=== PATIENT | male | born 1975 | race Caucasian/White ===

== ENCOUNTER 2017-06-13 13:40 | Emergency (ER) | payer OTHER, MEDICAID ==
--- NOTE | 2017-06-13 14:16 | ER Document Report ---
ED Medical Screen (RME) - General Chief Complaint: Psych Problem Stated Complaint: PSYCH EVAL Time Seen by Provider: 06/13/17 14:10 Mode of Arrival: Ambulatory Information source: Patient TRAVEL OUTSIDE OF THE [place] IN LAST 30 DAYS: No - HPI Onset: This morning Onset/Duration: Sudden Quality of pain: No pain Associated Symptoms: Other - AGITATED Exacerbated by: Denies Relieved by: Denies Similar symptoms previously: Yes Recently seen / treated by doctor: No - Related Data Allergies/Adverse Reactions: Penicillins Allergy (Verified 06/13/17 13:46) Past Medical History - General Information source: Patient - Past Medical History Cardiac Medical History: Reports: Hx Hypertension Pulmonary Medical History: Reports: Hx Asthma Renal/ Medical History: Denies: Hx Peritoneal Dialysis GI Medical History: Reports: Hx Gastroesophageal Reflux Disease Psychiatric Medical History: Reports: Hx Depression, Hx Schizophrenia - schizoaffective - Immunizations Hx Diphtheria, Pertussis, Tetanus Vaccination: No Review of Systems - Review of Systems Constitutional: No symptoms reported EENT: No symptoms reported Cardiovascular: No symptoms reported Respiratory: No symptoms reported Gastrointestinal: No symptoms reported Musculoskeletal: No symptoms reported Skin: No symptoms reported Neurological/Psychological: See HPI Physical Exam - Vital signs Vitals: Temp Pulse Resp BP Pulse Ox 98.3 F 93 16 143/82 H 98 06/13/17 13:46 06/13/17 13:46 06/13/17 13:46 06/13/17 13:46 06/13/17 13:46 Interpretation: Hypertensive. No: Tachycardic, Tachypneic, Febrile - General General appearance: Alert, Other - AGITATED, CONTINUALLY ROCKING TO & FRO In distress: None Course - Vital Signs Vital signs: Temp Pulse Resp BP Pulse Ox 98.3 F 93 16 143/82 H 98 06/13/17 13:46 06/13/17 13:46 06/13/17 13:46 06/13/17 13:46 06/13/17 13:46
[2017-06-13 15:23] LABS: ABSOLUTE BASOPHILS # (AUTO) 0.1 10^3/uL (0.0-0.2); ABSOLUTE EOSINOPHILS # (AUTO) 1.3 10^3/uL (0.0-0.6); ABSOLUTE LYMPHOCYTES (AUTO) 2.5 10^3/uL (0.5-4.7); ABSOLUTE NEUT (AUTO) 7.9 10^3/uL (1.7-8.2); BASOPHILS % (AUTO) 0.6 % (0-2); EOSINOPHILS % (AUTO) 10.4 % (0-6); HEMATOCRIT 45.8 % (37.9-51.0); HEMOGLOBIN 15.5 g/dL (13.5-17.0); HGB HCT DIFFERENCE 0.7; LYMPHOCYTES % (AUTO) 19.6 % (13-45); MEAN CORPUSCULAR HEMOGLOBIN 30.9 pg (27.0-33.4); MEAN CORPUSCULAR VOLUME 91 fl (80-97); MONOCYTES % (AUTO) 7.5 % (3-13); RED BLOOD COUNT 5.04 10^6/uL (4.35-5.55); RED CELL DISTRIBUTION WIDTH 12.9 % (11.5-14.0); SEGMENTED NEUTROPHILS % (AUTO) 61.9 % (42-78); WHITE BLOOD COUNT 12.8 10^3/uL (4.0-10.5)
[2017-06-13 15:47] LABS: ALANINE AMINOTRANSFERASE 51 U/L (21-72); ALKALINE PHOSPHATASE 94 U/L (38-126); ANION GAP 13 (5-19); ASPARTATE AMINO TRANSFERASE 26 U/L (17-59); BILIRUBIN,DIRECT 0.4 mg/dL (0.0-0.4); BILIRUBIN,TOTAL 0.5 mg/dL (0.2-1.3); BLOOD UREA NITROGEN 16 mg/dL (7-20); CALCIUM 9.9 mg/dL (8.4-10.2); CARBON DIOXIDE 27 mmol/L (22-30); CHLORIDE 100 mmol/L (98-107); GLUCOSE 73 mg/dL (75-110); POTASSIUM 4.2 mmol/L (3.6-5.0); SODIUM 139.6 mmol/L (137-145)
[2017-06-13 15:48] LABS: ALCOHOL < 10 mg/dL (NONE DETECTED)
[2017-06-13 16:30] LABS: APPEARANCE,URINE CLEAR; BILIRUBIN,URINE NEGATIVE (NEGATIVE); GLUCOSE, URINE NEGATIVE (NEGATIVE); KETONES,URINE NEGATIVE (NEGATIVE); LEUKOCYTE ESTERASE,URINE NEGATIVE (NEGATIVE); NITRITE,URINE NEGATIVE (NEGATIVE); PROTEIN,URINE NEGATIVE (NEGATIVE); URINE SPECIFIC GRAVITY 1.016; UROBILINOGEN,URINE NEGATIVE mg/dL (<2.0)
[2017-06-13 16:44] LABS: URINE BARBITURATES SCREEN NEGATIVE; URINE METHADONE SCREEN NEGATIVE; URINE OPIATES LOW NEGATIVE; URINE PHENCYCLIDINE SCREEN NEGATIVE
--- NOTE | 2017-06-13 18:02 | ER Document Report ---
ED Psych Disorder / Suicide - General Chief Complaint: Psych Problem Stated Complaint: PSYCH EVAL Time Seen by Provider: 06/13/17 14:10 Mode of Arrival: Ambulatory Information source: Patient Notes: 41-year-old male with a history of schizoaffective disorder with bipolar type, unspecified anxiety who is brought into the emergency room because of losing control. He states he has been feeling sad, crying, hearing voices. He denies any attempt to hurt himself. TRAVEL OUTSIDE OF THE [place] IN LAST 30 DAYS: No - HPI Patient complains to provider of: No: Aggression, Agitated, Bizarre behavior, Hallucinating, Homicidal ideation, Homicidal plan, Homicidal attempt, Overdose, Suicidal ideation, Suicidal plan, Suicidal attempt, Self injury, Other Onset: Just prior to arrival Onset was: Sudden Quality of pain: No pain Severity: None Pain Level: Denies Suicide Risk Factors: Schizophrenia Overdose of: No: Acetominophen, Alcohol, Anticholinergic, Anti-depressants, Benzodiazepine, Salicylate, Tricyclic Antidepressant, Other Injury to: No: Generalized, Abdomen, Ankle, Back, Breast, Buttocks, Chest, Elbow , Epigastric, Flank, Face, Finger, Foot, Hand, Head, Hip, Knee, Leg, Lower extremity, Mouth, Neck, Pelvic, Penis, Perineum, Rectum, Shoulder, Testicle, Thigh, Throat, Trunk, Upper extremity, Vagina, Wrist Normal mood: No Associated symptoms: Agitated, Depressed, Flat affect. No: Normal affect, Normal mood Similar symptoms previously: Yes Recently seen / treated by doctor: Yes - Related Data Allergies/Adverse Reactions: Penicillins Allergy (Verified 06/13/17 13:46) Home Medications: Current Home Medications Lisinopril 40 mg PO DAILY 06/13/17 [History] Past Medical History - General Information source: Patient - Social History Smoking Status: Never Smoker Cigarette use (# per day): No Chew tobacco use (# tins/day): No Frequency of alcohol use: None Drug Abuse: None Lives with: Family Family History: CVA Patient has suicidal ideation: No Patient has homicidal ideation: No - Past Medical History Cardiac Medical History: Reports: Hx Hypertension Pulmonary Medical History: Reports: Hx Asthma Renal/ Medical History: Denies: Hx Peritoneal Dialysis GI Medical History: Reports: Hx Gastroesophageal Reflux Disease Psychiatric Medical History: Reports: Hx Depression, Hx Schizophrenia - schizoaffective - Immunizations Hx Diphtheria, Pertussis, Tetanus Vaccination: No Review of Systems - Review of Systems Constitutional: denies: Chills, Fever EENT: No symptoms reported Cardiovascular: No symptoms reported Respiratory: No symptoms reported Gastrointestinal: No symptoms reported Genitourinary: No symptoms reported Male Genitourinary: No symptoms reported Musculoskeletal: No symptoms reported Skin: No symptoms reported Hematologic/Lymphatic: No symptoms reported Neurological/Psychological: See HPI Physical Exam - Vital signs Vitals: Temp Pulse Resp BP Pulse Ox 98.3 F 93 16 143/82 H 98 06/13/17 13:46 06/13/17 13:46 06/13/17 13:46 06/13/17 13:46 06/13/17 13:46 Notes: Physical exam: GENERAL: 41-year-old man, soft-spoken, alert and oriented 3. HEAD: Atraumatic, normocephalic. EYES: Pupils equal round and reactive to light, extraocular movements intact, sclera anicteric, conjunctiva are normal. ENT: TMs normal, nares patent, oropharynx clear without exudates. Moist mucous membranes. NECK: Normal range of motion, supple without lymphadenopathy or JVD. LUNGS: Breath sounds clear to auscultation bilaterally and equal. No wheezes rales or rhonchi. HEART: Regular rate and rhythm without murmurs, rubs or gallops. ABDOMEN: Soft, normoactive bowel sounds. No tenderness to palpation. No guarding, no rebound. No masses appreciated. EXTREMITIES: Normal range of motion, no pitting or edema. No clubbing or cyanosis. NEUROLOGICAL: Cranial nerves II through XII grossly intact. Normal speech, normal gait. PSYCH: Appears depressed, appears to have a labile affect. SKIN: Warm, Dry, normal turgor, no rashes or lesions noted. Course - Re-evaluation Re-evalutation: 06/14/17 01:04 Patient is medically cleared for discharge your psychiatric transfer - Vital Signs Vital signs: Temp Pulse Resp BP Pulse Ox 98.2 F 91 18 131/70 H 98 06/13/17 19:35 06/13/17 19:35 06/13/17 20:02 06/13/17 19:35 06/13/17 19:35 - Laboratory Result Diagrams: 06/13/17 14:53 06/13/17 14:53 Laboratory results interpreted by me: 06/13/17 06/13/17 14:53 14:53 WBC 12.8 H Eosinophils % 10.4 H Absolute Eosinophils 1.3 H Glucose 73 L Salicylates < 1.0 L Acetaminophen < 10 L Discharge - Discharge Clinical Impression: Mood disorder NOS Condition: Stable Disposition: PSYCH HOSP/UNIT Referrals: CHYNA RIOS MD [Primary Care Provider] - Follow up as needed
[2017-06-13] MEDS: OXCARBAZEPINE 150 MG TABLET PO SCH (18:41)
--- NOTE | 2017-06-13 18:57 | EKG REPORT ---
SEVERITY:- NORMAL ECG - SINUS RHYTHM : Confirmed by: Triny Julian MD 13-Jun-2017 18:57:16
[2017-06-13] MEDS ORDERED: LISINOPRIL 10 MG TABLET PO ONE (19:30)
[2017-06-13] MEDS ORDERED: QUETIAPINE FUMARATE 100 MG TABLET PO SCH (22:00)
[2017-06-14] MEDS ORDERED: QUETIAPINE FUMARATE 25 MG TABLET PO SCH (08:00)
[2017-06-14] MEDS ORDERED: LISINOPRIL 10 MG TABLET PO SCH (10:00)
[2017-06-14] MEDS: OXCARBAZEPINE 150 MG TABLET PO SCH (17:40)
[2017-06-14 20:25] VITALS: BP 135/87
== END 2017-06-14 20:32 ==
LOC: ER 13:40
DX: F25.0 Schizoaffective disorder, bipolar type (principal); F41.9 Anxiety disorder, unspecified; I10 Essential (primary) hypertension
CPT/HCPCS: 93005; 99285; 36415; 80307 ×4; 85025; 80053; 81001; 93010; J3490 ×4